=== PATIENT | male | born 1950 | race Caucasian/White ===

== ENCOUNTER 2017-07-20 10:21 | Inpatient (IN) | payer OTHER ==
[~2017-07-20] VITALS: Ht 177.8 cm; Wt 104.9 kg
[~2017-07-20 10:21] MED LIST: AMITRIPTYLINE H10 MG PO; ANTIVERT25 MG PO; ARICEPT5 MG PO; ASTAXANTHIN4 MG PO; CENTRUM SILVER1 EAC3 PO; CYTOXAN25 MG PO; ENABLEX7.5 MG PO; MEGA RED; MEGA RED PO; MOVE FREE PO; MOVE FREE1 CAPSULE PO; MULTIVITAMIN1 EAC1 PO; PREDNISONE20 MG PO; PRILOSEC20 MG PO; VITAMIN C1000 MG PO; VITAMIN C500 MG PO; XANAX0.125 MG PO; ZETIA10 MG PO
[2017-07-20 11:02] LABS: EOSINOPHIL (%) 1.6 % (0-5); EOSINOPHIL COUNT 0.1 K/uL (0-0.3); HEMATOCRIT 45.6 % (38.0-50.0); IMMATURE GRANULOCYTE (%) 0.2 % (0.0-0.7); INSTRUMENT ABS NEUTROPHIL CT 4.7 K/uL; MCH 30.1 PG (29.0-34.0); MCHC 32.9 G/DL (30.0-36.0); MCV 91.6 FL (86-99); MEAN PLAT.VOLUME 10.2 uM^3 (9.0-12.4); MONOCYTE (%) 5.9 % (3-12); MONOCYTE COUNT 0.4 K/uL (0-0.8); NEUTROPHIL (%) 75.2 % (45-76); NEUTROPHIL COUNT 4.7 K/uL (1.8-6.4); PLATELET COUNT 156 K/uL (156-360); RBC DIS.WIDTH-CV 13.6 % (11.8-14.6); RBC DIS.WIDTH-SD 46.2 % (39-53); RED BLOOD COUNT 4.98 M/uL (4.00-5.50); WHITE BLOOD COUNT 6.3 K/uL (4.1-10.2)
[2017-07-20 11:09] LABS: INTER. NORMALIZED RATIO 1.1; PROTHROMBIN TIME 12.3 SEC (10.2-12.9)
[2017-07-20 11:11] LABS: PTT 30.5 SEC (25-37)
[2017-07-20 11:13] LABS: CHLORIDE 105 mEq/L (99-109); POTASSIUM 3.9 mEq/L (3.7-5.4); SODIUM 140 mEq/L (136-147)
[2017-07-20 11:16] LABS: GLUCOSE 123 mg/dL (70-99)
[2017-07-20 11:17] LABS: ANION GAP 9 MEQ/L (2-14)
[2017-07-20 11:18] LABS: TOTAL BILIRUBIN 0.6 mg/dL (0.0-1.0)
[2017-07-20 11:19] LABS: ALKALINE PHOSPHATASE 94 IU/L (3-129)
[2017-07-20 11:20] LABS: GFR ESTIMATE (CALCULATED) > 59 mL/min/
[2017-07-20 11:21] LABS: DIRECT BILIRUBIN 0.2 mg/dL (0.0-0.3); UREA NITROGEN (BUN) 13 mg/dL (9-23)
[2017-07-20 11:23] LABS: TROP-I INTERPRETATION NEGATIVE; TROPONIN-I < 0.01 ng/mL (0.0-0.30)
[2017-07-20] MEDS ORDERED: PRAVASTATIN SOD40 MG PO (13:44)
[2017-07-20] MEDS ORDERED: NAMZARIC 28 MG1 EACH PO (13:44)
[2017-07-20] MEDS ORDERED: VESICARE5 MG PO (13:51)
[2017-07-20] MEDS ORDERED: METFORMIN HCL500 MG PO (13:53)
[2017-07-20 14:54] LABS: ADD MIUA? NO; BILIRUBIN NEGATIVE; BLOOD NEGATIVE; COLOR YELLOW ((YELLOW)); GLUCOSE (STRIP) NEGATIVE; KETONES NEGATIVE; LEUKOCYTES NEGATIVE; NITRITE NEGATIVE; PROTEIN (STRIP) NEGATIVE; SPECIFIC GRAVITY 1.013 (1.000-1.030); UCUL ADDED? NO; UROBILINOGEN 0.2 MG/DL (0.2-1.0)
[2017-07-20 15:24] LABS: Estimated Average Glucose 140 mg/dL (70-123); HEMOGLOBIN A1c (GLYCOHEMOGLOB) 6.5 % HGB (Below 5.7)
[2017-07-20 15:41] LABS: HDL CHOLESTEROL 35 MG/DL (Desirable>=40); LDL CHOLESTEROL 83 mg/dL (Desirable<100); NON-HDL CHOLESTEROL 115 mg/dL (Desirable<160); TOTAL CHOLESTEROL 150 mg/dL (Desirable<200); TRIGLYCERIDES 160 MG/DL (Normal: <150)
[2017-07-20 16:56] VITALS: BP 143/100
[2017-07-20 17:35] LABS: POINT-OF-CARE METER ID UU14188625
[2017-07-20 19:41] VITALS: BP 146/91
[2017-07-20 21:31] LABS: POINT-OF-CARE METER ID UU14188625
[2017-07-21 04:04] VITALS: BP 166/90
[2017-07-21 07:50] LABS: POINT-OF-CARE METER ID UU14188625
[2017-07-21 07:59] VITALS: BP 140/86
[2017-07-21 12:08] LABS: POINT-OF-CARE METER ID UU13113717
[2017-07-21 12:17] VITALS: BP 148/87
[2017-07-21 16:03] VITALS: BP 139/63; BP 180/95
[2017-07-21 16:59] LABS: POINT-OF-CARE METER ID UU14174225
[2017-07-21 17:50] VITALS: BP 142/81
[2017-07-21 19:54] VITALS: BP 142/99
[2017-07-21 20:57] LABS: POINT-OF-CARE METER ID UU13113717
[2017-07-22 04:08] VITALS: BP 167/84
[2017-07-22 06:59] VITALS: BP 140/97
[2017-07-22 08:00] LABS: POINT-OF-CARE METER ID UU13113717
[2017-07-22 10:41] LABS: POINT-OF-CARE METER ID UU14107333
[2017-07-22 16:00] VITALS: BP 149/85
[2017-07-22 17:31] LABS: POINT-OF-CARE METER ID UU14174225
[2017-07-22 19:26] VITALS: BP 169/111
[2017-07-22 22:02] LABS: POINT-OF-CARE METER ID UU14174225
[2017-07-23 07:33] VITALS: BP 136/74
[2017-07-23 09:01] LABS: POINT-OF-CARE METER ID UU14174225
[2017-07-23 11:48] LABS: POINT-OF-CARE METER ID UU14174225
[2017-07-23 12:07] VITALS: BP 149/89
[2017-07-23 16:33] LABS: POINT-OF-CARE METER ID UU14174225
[2017-07-23 16:35] VITALS: BP 143/85
[2017-07-23 19:53] VITALS: BP 192/116
[2017-07-23 21:36] LABS: POINT-OF-CARE METER ID UU13113717
[2017-07-24] VITALS (7 sets, daily range): BP systolic 134–177; BP diastolic 69–117
[2017-07-24 09:48] LABS: POINT-OF-CARE METER ID UU13113717
[2017-07-24 11:57] LABS: POINT-OF-CARE METER ID UU13113717
[2017-07-24 17:25] LABS: POINT-OF-CARE METER ID UU14188625
[2017-07-25 07:55] VITALS: BP 180/115
[2017-07-25 07:56] VITALS: BP 142/82
[2017-07-25 11:14] VITALS: BP 148/98
[2017-07-25 12:39] LABS: POINT-OF-CARE METER ID UU14188625
[2017-07-25 17:26] LABS: POINT-OF-CARE METER ID UU14188625
[2017-07-25 21:43] LABS: POINT-OF-CARE METER ID UU14188625
[2017-07-25 23:20] VITALS: BP 165/103
[2017-07-26 07:57] VITALS: BP 146/82
[2017-07-26 09:38] LABS: POINT-OF-CARE METER ID UU14188625
[2017-07-26 11:54] LABS: POINT-OF-CARE METER ID UU14174225
[2017-07-26 16:01] VITALS: BP 164/95
[2017-07-26 17:14] LABS: POINT-OF-CARE METER ID UU14188625
[2017-07-26 21:08] LABS: POINT-OF-CARE METER ID UU14174225
[2017-07-27] VITALS: BP 154/88
[2017-07-27 06:34] LABS: BASOPHIL COUNT 0.1 K/uL (0-0.1); EOSINOPHIL (%) 4.2 % (0-5); EOSINOPHIL COUNT 0.3 K/uL (0-0.3); HEMATOCRIT 50.2 % (38.0-50.0); IMMATURE GRANULOCYTE (%) 0.3 % (0.0-0.7); INSTRUMENT ABS NEUTROPHIL CT 4.4 K/uL; LYMPHOCYTE COUNT 1.4 K/uL (1.0-2.8); MCH 30.6 PG (29.0-34.0); MCHC 33.3 G/DL (30.0-36.0); MCV 92.1 FL (86-99); MEAN PLAT.VOLUME 10.4 uM^3 (9.0-12.4); MONOCYTE COUNT 0.5 K/uL (0-0.8); NEUTROPHIL (%) 65.6 % (45-76); NEUTROPHIL COUNT 4.4 K/uL (1.8-6.4); PLATELET COUNT 188 K/uL (156-360); RBC DIS.WIDTH-SD 47.1 % (39-53); RED BLOOD COUNT 5.45 M/uL (4.00-5.50); WHITE BLOOD COUNT 6.6 K/uL (4.1-10.2)
[2017-07-27 06:57] LABS: ANION GAP 10 MEQ/L (2-14); CHLORIDE 102 MEQ/L (99-109); GFR ESTIMATE (CALCULATED) > 59 mL/min/; GLUCOSE 118 mg/dL (70-99); POTASSIUM 3.8 MEQ/L (3.7-5.4); SAMPLE HEMOLYSIS CHECK 0; SAMPLE ICTERIC CHECK 0; SAMPLE LIPEMIA CHECK 0; SODIUM 138 MEQ/L (136-147); UREA NITROGEN (BUN) 16 mg/dL (9-23)
[2017-07-27 07:47] VITALS: BP 150/89
[2017-07-27 11:40] LABS: POINT-OF-CARE METER ID UU13113717
[2017-07-27 16:19] VITALS: BP 168/91
[2017-07-27 17:00] VITALS: BP 179/110
[2017-07-27 17:00] LABS: POINT-OF-CARE METER ID UU14174225
[2017-07-27 21:03] LABS: POINT-OF-CARE METER ID UU13113717
[2017-07-27 23:44] VITALS: BP 143/97
[2017-07-28 07:59] LABS: POINT-OF-CARE METER ID UU14174225
[2017-07-28 08:20] VITALS: BP 166/88
[2017-07-28 12:28] LABS: POINT-OF-CARE METER ID UU14174225
[2017-07-28 16:30] VITALS: BP 148/77
[2017-07-28 17:19] LABS: POINT-OF-CARE METER ID UU14188625
[2017-07-28 19:56] VITALS: BP 186/95
[2017-07-28 20:47] LABS: POINT-OF-CARE METER ID UU14188625
[2017-07-29] VITALS (7 sets, daily range): BP systolic 130–180; BP diastolic 74–100
[2017-07-29 07:44] LABS: POINT-OF-CARE METER ID UU14174225
[2017-07-29 12:15] LABS: POINT-OF-CARE METER ID UU14174225
[2017-07-29 16:30] LABS: POINT-OF-CARE METER ID UU13113717
[2017-07-29 21:07] LABS: POINT-OF-CARE METER ID UU14188625
[2017-07-30 05:20] VITALS: BP 141/79
[2017-07-30 06:12] LABS: BASOPHIL COUNT 0.1 K/uL (0-0.1); EOSINOPHIL (%) 5.5 % (0-5); EOSINOPHIL COUNT 0.4 K/uL (0-0.3); HEMATOCRIT 48.5 % (38.0-50.0); IMMATURE GRANULOCYTE (%) 0.3 % (0.0-0.7); INSTRUMENT ABS NEUTROPHIL CT 4.4 K/uL; LYMPHOCYTE COUNT 1.7 K/uL (1.0-2.8); MCH 29.9 PG (29.0-34.0); MCHC 32.8 G/DL (30.0-36.0); MCV 91.3 FL (86-99); MEAN PLAT.VOLUME 10.6 uM^3 (9.0-12.4); MONOCYTE (%) 9.8 % (3-12); MONOCYTE COUNT 0.7 K/uL (0-0.8); NEUTROPHIL (%) 59.5 % (45-76); NEUTROPHIL COUNT 4.4 K/uL (1.8-6.4); PLATELET COUNT 192 K/uL (156-360); RBC DIS.WIDTH-CV 13.5 % (11.8-14.6); RBC DIS.WIDTH-SD 45.3 % (39-53); RED BLOOD COUNT 5.31 M/uL (4.00-5.50); WHITE BLOOD COUNT 7.3 K/uL (4.1-10.2)
[2017-07-30 06:38] LABS: ANION GAP 9 MEQ/L (2-14); CHLORIDE 104 MEQ/L (99-109); GFR ESTIMATE (CALCULATED) > 59 mL/min/; GLUCOSE 104 mg/dL (70-99); SAMPLE HEMOLYSIS CHECK 0; SAMPLE ICTERIC CHECK 0; SAMPLE LIPEMIA CHECK 0; SODIUM 140 MEQ/L (136-147); UREA NITROGEN (BUN) 15 mg/dL (9-23)
[2017-07-30 07:15] VITALS: BP 109/60
[2017-07-30 07:17] VITALS: BP 161/88
[2017-07-30 11:11] LABS: POINT-OF-CARE METER ID UU13113717
[2017-07-30 15:55] VITALS: BP 159/89
[2017-07-30 17:40] LABS: POINT-OF-CARE METER ID UU14174225
[2017-07-30 21:13] LABS: POINT-OF-CARE METER ID UU14188625
[2017-07-31 00:03] VITALS: BP 150/86
[2017-07-31 07:23] VITALS: BP 160/85
[2017-07-31 08:11] LABS: POINT-OF-CARE METER ID UU14188625
[2017-07-31 12:28] LABS: POINT-OF-CARE METER ID UU14188625
[2017-07-31 16:00] VITALS: BP 142/96
[2017-07-31 16:46] LABS: POINT-OF-CARE METER ID UU14188625
[2017-07-31 23:54] VITALS: BP 141/74
[2017-08-01 07:19] LABS: POINT-OF-CARE METER ID UU14174225
[2017-08-01 08:19] VITALS: BP 151/90
[2017-08-01 12:29] LABS: POINT-OF-CARE METER ID UU14188625; POINT-OF-CARE USER ID STWAMT
[2017-08-01 17:30] VITALS: BP 145/93
[2017-08-01 17:33] LABS: POINT-OF-CARE METER ID UU13113717
[2017-08-01 21:21] LABS: POINT-OF-CARE METER ID UU14188625
[2017-08-01 22:26] VITALS: BP 131/83
[2017-08-02 08:00] LABS: POINT-OF-CARE METER ID UU14188625
[2017-08-02 08:14] VITALS: BP 145/88
[2017-08-02 12:12] LABS: POINT-OF-CARE METER ID UU14188625
[2017-08-02 15:56] VITALS: BP 138/72
[2017-08-02 17:13] LABS: POINT-OF-CARE METER ID UU14174225
[2017-08-02 21:26] LABS: POINT-OF-CARE METER ID UU14188625
[2017-08-02 23:22] VITALS: BP 173/94
[2017-08-03 07:11] LABS: HEMATOCRIT 46.2 % (38.0-50.0); MCH 29.9 PG (29.0-34.0); MCHC 32.9 G/DL (30.0-36.0); MCV 90.9 FL (86-99); MEAN PLAT.VOLUME 10.1 uM^3 (9.0-12.4); PLATELET COUNT 204 K/uL (156-360); RBC DIS.WIDTH-CV 13.2 % (11.8-14.6); RBC DIS.WIDTH-SD 44.7 % (39-53); RED BLOOD COUNT 5.08 M/uL (4.00-5.50); WHITE BLOOD COUNT 10.9 K/uL (4.1-10.2)
[2017-08-03 07:44] LABS: ANION GAP 8 MEQ/L (2-14); CHLORIDE 105 MEQ/L (99-109); GFR ESTIMATE (CALCULATED) > 59 mL/min/; GLUCOSE 96 mg/dL (70-99); SAMPLE HEMOLYSIS CHECK 1; SAMPLE ICTERIC CHECK 0; SAMPLE LIPEMIA CHECK 0; SODIUM 140 MEQ/L (136-147); UREA NITROGEN (BUN) 14 mg/dL (9-23)
[2017-08-03 08:17] LABS: POINT-OF-CARE METER ID UU13113717
[2017-08-03 08:22] VITALS: BP 129/72
[2017-08-03 12:11] LABS: POINT-OF-CARE METER ID UU14188625
[2017-08-03 16:41] LABS: POINT-OF-CARE METER ID UU13113717
[2017-08-03 17:16] VITALS: BP 132/74
[2017-08-03 21:04] LABS: POINT-OF-CARE METER ID UU14174225
[2017-08-03 23:04] VITALS: BP 137/71
[2017-08-04 06:57] LABS: HEMATOCRIT 43.6 % (38.0-50.0); MCH 30.7 PG (29.0-34.0); MCHC 33.5 G/DL (30.0-36.0); MCV 91.8 FL (86-99); MEAN PLAT.VOLUME 10.8 uM^3 (9.0-12.4); PLATELET COUNT 196 K/uL (156-360); RBC DIS.WIDTH-CV 13.3 % (11.8-14.6); RBC DIS.WIDTH-SD 45.5 % (39-53); RED BLOOD COUNT 4.75 M/uL (4.00-5.50); WHITE BLOOD COUNT 6.6 K/uL (4.1-10.2)
[2017-08-04 07:37] LABS: POINT-OF-CARE METER ID UU14188625
[2017-08-04 07:49] VITALS: BP 143/77
[2017-08-04 11:53] LABS: POINT-OF-CARE METER ID UU14174225
[2017-08-04 15:46] VITALS: BP 131/90
[2017-08-04 16:44] LABS: POINT-OF-CARE METER ID UU14174225
[2017-08-04 21:50] LABS: POINT-OF-CARE METER ID UU14174225
[2017-08-04 23:37] VITALS: BP 136/93
[2017-08-05 06:55] LABS: POINT-OF-CARE METER ID UU13113717
[2017-08-05 07:08] VITALS: BP 118/64
[2017-08-05 11:11] LABS: POINT-OF-CARE METER ID UU13113717
[2017-08-05 12:16] LABS: POINT-OF-CARE METER ID UU13113717
[2017-08-05 15:09] VITALS: BP 159/89
[2017-08-05 16:44] LABS: POINT-OF-CARE METER ID UU13113717
[2017-08-05 20:38] LABS: POINT-OF-CARE METER ID UU14188625
[2017-08-05 23:23] VITALS: BP 136/62
[2017-08-06 07:05] VITALS: BP 139/86
[2017-08-06 07:07] LABS: POINT-OF-CARE METER ID UU14188625
[2017-08-06] MEDS ORDERED: PRAVASTATIN SOD80 MG PO (11:36)
[2017-08-06] MEDS ORDERED: DONEPEZIL HCL10 MG PO (11:36)
[2017-08-06] MEDS ORDERED: SERTRALINE HCL50 MG PO (11:36)
[2017-08-06] MEDS ORDERED: AMLODIPINE BESYL5 MG PO (11:36)
[2017-08-06] MEDS ORDERED: ASPIRIN EC325 MG PO (11:36)
[2017-08-06 11:55] LABS: POINT-OF-CARE METER ID UU14188625
[2017-08-06 16:00] VITALS: BP 140/94
[2017-08-06 17:07] LABS: POINT-OF-CARE METER ID UU14174225
[2017-08-06 20:46] LABS: POINT-OF-CARE METER ID UU14174225
[2017-08-06 23:43] VITALS: BP 145/70
[2017-08-07 07:02] LABS: POINT-OF-CARE METER ID UU14174225
[2017-08-07 08:05] VITALS: BP 132/88
[2017-08-07 12:07] LABS: POINT-OF-CARE METER ID UU13113717
[2017-08-07 17:37] LABS: POINT-OF-CARE METER ID UU13113717
[2017-08-07 18:03] VITALS: BP 137/82
[2017-08-07 21:58] LABS: POINT-OF-CARE METER ID UU14188625
[2017-08-07 23:58] VITALS: BP 128/74
[2017-08-08 07:01] LABS: POINT-OF-CARE METER ID UU14174225
[2017-08-08 07:38] VITALS: BP 140/79
[2017-08-08 08:47] LABS: HEMATOCRIT 46.1 % (38.0-50.0); MCH 30.4 PG (29.0-34.0); MCHC 33.4 G/DL (30.0-36.0); MCV 90.9 FL (86-99); MEAN PLAT.VOLUME 10.5 uM^3 (9.0-12.4); PLATELET COUNT 199 K/uL (156-360); RBC DIS.WIDTH-CV 13.6 % (11.8-14.6); RBC DIS.WIDTH-SD 45.1 % (39-53); RED BLOOD COUNT 5.07 M/uL (4.00-5.50)
[2017-08-08 09:08] LABS: ALKALINE PHOSPHATASE 88 IU/L (3-129); ANION GAP 8 MEQ/L (2-14); CHLORIDE 107 MEQ/L (99-109); GFR ESTIMATE (CALCULATED) > 59 mL/min/; GLUCOSE 95 mg/dL (70-99); POTASSIUM 4.1 MEQ/L (3.7-5.4); SAMPLE HEMOLYSIS CHECK 0; SAMPLE ICTERIC CHECK 0; SAMPLE LIPEMIA CHECK 0; SODIUM 142 MEQ/L (136-147); TOTAL BILIRUBIN 0.6 MG/DL (0.0-1.0); UREA NITROGEN (BUN) 12 mg/dL (9-23)
[2017-08-08 12:55] LABS: POINT-OF-CARE METER ID UU13113717
[2017-08-08 17:15] LABS: POINT-OF-CARE METER ID UU14188625
[2017-08-08 17:33] VITALS: BP 128/81
[2017-08-08 20:30] LABS: POINT-OF-CARE METER ID UU13113717
[2017-08-09 00:05] VITALS: BP 121/79
[2017-08-09 06:57] LABS: POINT-OF-CARE METER ID UU14174225
[2017-08-09 06:59] LABS: HEMATOCRIT 45.8 % (38.0-50.0); MCH 30.9 PG (29.0-34.0); MCHC 33.6 G/DL (30.0-36.0); MEAN PLAT.VOLUME 10.8 uM^3 (9.0-12.4); PLATELET COUNT 195 K/uL (156-360); RBC DIS.WIDTH-CV 13.5 % (11.8-14.6); RBC DIS.WIDTH-SD 45.9 % (39-53); RED BLOOD COUNT 4.98 M/uL (4.00-5.50); WHITE BLOOD COUNT 6.7 K/uL (4.1-10.2)
[2017-08-09 07:01] LABS: ANION GAP 7 MEQ/L (2-14); CHLORIDE 105 MEQ/L (99-109); GFR ESTIMATE (CALCULATED) > 59 mL/min/; GLUCOSE 94 mg/dL (70-99); SAMPLE HEMOLYSIS CHECK 0; SAMPLE ICTERIC CHECK 0; SAMPLE LIPEMIA CHECK 0; SODIUM 141 MEQ/L (136-147); UREA NITROGEN (BUN) 13 mg/dL (9-23)
[2017-08-09 07:04] VITALS: BP 151/90
[2017-08-09 11:16] LABS: POINT-OF-CARE METER ID UU14188625
[2017-08-09 15:13] VITALS: BP 169/66
[2017-08-09 16:31] LABS: POINT-OF-CARE METER ID UU14174225
[2017-08-09 21:17] LABS: POINT-OF-CARE METER ID UU14188625
[2017-08-09 21:37] LABS: DIRECT BILIRUBIN 0.2 mg/dL (0.0-0.3); TOTAL BILIRUBIN 0.5 MG/DL (0.0-1.0)
[2017-08-09 21:43] LABS: ALKALINE PHOSPHATASE 86 IU/L (3-129)
[2017-08-10 00:03] VITALS: BP 146/92
[2017-08-10 07:16] VITALS: BP 138/78
[2017-08-10 07:20] LABS: POINT-OF-CARE METER ID UU14174225
[2017-08-10 08:22] LABS: ADD MIUA? NO; BILIRUBIN NEGATIVE; BLOOD NEGATIVE; COLOR YELLOW ((YELLOW)); GLUCOSE (STRIP) NEGATIVE; KETONES NEGATIVE; LEUKOCYTES NEGATIVE; NITRITE NEGATIVE; PROTEIN (STRIP) NEGATIVE; SPECIFIC GRAVITY 1.009 (1.000-1.030); UCUL ADDED? NO
[2017-08-10 11:14] LABS: POINT-OF-CARE METER ID UU14188625
[2017-08-10 15:05] VITALS: BP 148/85
[2017-08-10 16:36] LABS: POINT-OF-CARE METER ID UU13113717
[2017-08-11] VITALS: BP 153/85
[2017-08-11 07:47] VITALS: BP 112/63
[2017-08-11 08:16] LABS: POINT-OF-CARE METER ID UU14174225
[2017-08-11 12:05] LABS: POINT-OF-CARE METER ID UU13113717
[2017-08-11] MEDS ORDERED: NAMZARIC 28 MG1 EACH PO (13:16)
[2017-08-11] MEDS ORDERED: VESICARE5 MG PO (13:16)
[2017-08-11] MEDS ORDERED: AMITRIPTYLINE H10 MG PO (13:16)
[2017-08-11] MEDS ORDERED: METFORMIN HCL500 MG PO (13:16)
[2017-08-11] MEDS ORDERED: CENTRUM SILVER1 EAC3 PO (13:16)
[2017-08-11] MEDS ORDERED: PRILOSEC20 MG PO (13:16)
[2017-08-11] MEDS ORDERED: ANTIVERT25 MG PO (13:16)
[2017-08-11] MEDS ORDERED: VITAMIN C500 MG PO (13:16)
[2017-08-11 16:18] VITALS: BP 131/69
== END 2017-08-11 16:40 | disposition home or self-care (01) | DRG 64 ==
LOC: EME 10:21 → 5SOUTH 13:35 → EDOF 13:35 → ENRESERV 13:39 → EDOF 13:44 → ENRESERV 13:54 → 5SOUTH 16:31
PROVIDERS: Emergency Medicine; Hospitalist; Internal Medicine; Nurse Practitioner Adult Health; Student in an Organized Health Care Education/Training Program
DX: I63.19 Cerebral infarction due to embolism of other precerebral artery (principal); I63.49 Cerebral infarction due to embolism of other cerebral artery; G81.94 Hemiplegia, unspecified affecting left nondominant side; R13.10 Dysphagia, unspecified; R29.810 Facial weakness; R47.01 Aphasia; R47.1 Dysarthria and anarthria; I47.1 Supraventricular tachycardia; I48.91 Unspecified atrial fibrillation; I10 Essential (primary) hypertension; G43.909 Migraine, unspecified, not intractable, without status migrainosus; K21.9 Gastro-esophageal reflux disease without esophagitis; G30.9 Alzheimer's disease, unspecified; F02.81 Dementia in other diseases classified elsewhere, unspecified severity, with behavioral disturbance; F05 Delirium due to known physiological condition; E78.5 Hyperlipidemia, unspecified; N40.0 Benign prostatic hyperplasia without lower urinary tract symptoms; H81.10 Benign paroxysmal vertigo, unspecified ear; F40.240 Claustrophobia; K57.30 Diverticulosis of large intestine without perforation or abscess without bleeding; R73.03 Prediabetes; F41.9 Anxiety disorder, unspecified; F32.9 Major depressive disorder, single episode, unspecified; E66.9 Obesity, unspecified; Z23 Encounter for immunization; Z87.891 Personal history of nicotine dependence; Z68.33 Body mass index [BMI] 33.0-33.9, adult
CPT/HCPCS: 70450; 70544; 70551; 71020; 73502; 74176; 80048; 80053; 80061; 80076; 81003; 82948; 83036; 84484; 85025; 85027; 85610; 85730; 90686; 92507 GN; 92523 GN; 92526 GN; 92610 GN; 93005; 93306; 93312; 93880; 97530 GO; 97530 GP; 97532 GN; 99281; 99285; G8996 GN CH; G8997 GN CH; G8998 GN CH; J0360; J1200; J1650; J1815; J2060; J2250; J2405; J2765; S0028

== ENCOUNTER 2018-03-05 11:06 | Emergency (ER) | payer OTHER ==
[~2018-03-05] VITALS: Ht 175.3 cm; Wt 99.1 kg
[~2018-03-05 11:06] MED LIST changes: +AMLODIPINE BESYL5 MG PO; +ASPIRIN EC325 MG PO; +DONEPEZIL HCL10 MG PO; +METFORMIN HCL500 MG PO; +NAMZARIC 28 MG1 EACH PO; +PRAVASTATIN SOD40 MG PO; +PRAVASTATIN SOD80 MG PO; +SERTRALINE HCL50 MG PO; +VESICARE5 MG PO
[2018-03-05 12:06] LABS: INTER. NORMALIZED RATIO 1.1
[2018-03-05 12:10] LABS: BASOPHIL (%) 0.8 % (0-1); BASOPHIL COUNT 0.1 K/uL (0-0.1); EOSINOPHIL (%) 5.3 % (0-5); EOSINOPHIL COUNT 0.4 K/uL (0-0.3); HEMATOCRIT 48.5 % (38.0-50.0); HEMOGLOBIN 16.5 G/DL (12.5-16.6); IMMATURE GRANULOCYTE (%) 0.1 % (0.0-0.7); LYMPHOCYTE (%) 20.1 % (15-42); LYMPHOCYTE COUNT 1.5 K/uL (1.0-2.8); MCH 31.2 PG (29.0-34.0); MCV 91.7 FL (86-99); MONOCYTE (%) 6.1 % (3-12); MONOCYTE COUNT 0.5 K/uL (0-0.8); NEUTROPHIL (%) 67.6 % (45-76); NEUTROPHIL COUNT 5.1 K/uL (1.8-6.4); PLATELET COUNT 183 K/uL (156-360); RBC DIS.WIDTH-CV 13.3 % (11.8-14.6); RBC DIS.WIDTH-SD 44.7 % (39-53); RED BLOOD COUNT 5.29 M/uL (4.00-5.50); WHITE BLOOD COUNT 7.5 K/uL (4.1-10.2)
[2018-03-05 12:59] LABS: CHLORIDE 110 MEQ/L (99-109); GFR ESTIMATE (CALCULATED) > 59 mL/min/ (58.99-99999); GLUCOSE 94 mg/dL (70-99); POTASSIUM 4.3 MEQ/L (3.7-5.4); SODIUM 147 MEQ/L (136-147); UREA NITROGEN (BUN) 14 mg/dL (9-23)
[2018-03-05] MEDS ORDERED: PRILOSEC20 MG PO ×2 (13:19→13:21)
[2018-03-05 13:42] VITALS: BP 116/71
== END 2018-03-05 13:43 | disposition home or self-care (01) ==
LOC: EME 11:06
PROVIDERS: Emergency Medicine
DX: K29.70 Gastritis, unspecified, without bleeding (principal); K21.9 Gastro-esophageal reflux disease without esophagitis; R07.9 Chest pain, unspecified; K92.0 Hematemesis; F03.90 Unspecified dementia, unspecified severity, without behavioral disturbance, psychotic disturbance, mood disturbance, and anxiety; E11.22 Type 2 diabetes mellitus with diabetic chronic kidney disease; N18.9 Chronic kidney disease, unspecified; Z87.442 Personal history of urinary calculi; Z87.891 Personal history of nicotine dependence
CPT/HCPCS: 71045; 80048; 85025; 85610; 99281; 99285; C9113